=== PATIENT | male | born 1985 | race African-American/Black ===

== ENCOUNTER 2024-10-18 09:54 | Emergency (ER) | payer MEDICAID, SELFPAY ==
--- NOTE | ~2024-10-18 | XR_ITS ---
EXAMINATION: XR CHEST CLINICAL INFORMATION: cough COMPARISON: None available. TECHNIQUE: PA view of the chest was obtained. FINDINGS: The lungs are well expanded. No focal consolidation, effusion, edema, or pneumothorax. The cardiomediastinal silhouette is within normal limits for technique. No acute osseous abnormality. XR/XR chest 1V IMPRESSION: No acute pulmonary disease. Electronically signed by: Pat Vergara DO 10/18/2024 01:06 PM TONI
[2024-10-18 10:27] VITALS: BP 136/93; PULSE 81; RESP 20; TEMP 37; O2SAT 98; BMI 29.4
[2024-10-18 11:19] LABS: Influenza A PCR NEGATIVE (Negative); Influenza B PCR NEGATIVE (Negative); Resp Syncy Virus RNA Qual PCR NEGATIVE (Negative); SARS COV2 PCR INHOUSE NEGATIVE (Negative)
--- NOTE | 2024-10-18 11:41 | ED_ITS ---
HPI - General Adult General Chief complaint: Upper Respiratory Symptoms Stated complaint: Congestion, SOB Time Seen by Provider: 10/18/24 11:41 Source: patient Mode of arrival: ambulatory History of Present Illness ED Provider: esperanza NUNES narrative: Patient is a 39-year-old male with history of childhood asthma presenting to the emergency department with complaint of cough and shortness of breath since last . Reports fevers initially, none in the past few days. 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 Has not used any inhalers as he does not have any at home. Denies any chest pain or palpitations. MD complaint: cough, shortness of breath Onset (ago): day(s) Treatments prior to arrival: none Related Data Previous Rx's ?Medication ?Instructions ?Recorded albuterol sulfate 90 mcg/actuation 2 puff inhalation Q4-6H PRN 10/18/24 aerosol inhaler shortness of breath or wheezing #6.7 grams azithromycin 250 mg tablet See Rx Instructions PO .COMPLEX #6 10/18/24 tabs prednisone 20 mg tablet 40 mg (2 x 20 mg) PO DAILY #10 tabs 10/18/24 Allergies Allergy/AdvReac Type Severity Reaction Status Date / Time No Known Allergies Allergy Verified 10/18/24 10:30 Review of Systems Review of Systems: As per HPI Yes all other systems are reviewed and are negative Constitutional: Constitutional: Reports as per HPI [facility] Social History Social History Advance Directives: No Advance Directives Information Provided: Yes Physical Exam ED Vital Signs: Vital Signs - 24 hr 10/18/24 10:27 Temperature 98.6 F Pulse Rate 81 Respiratory Rate 20 Blood Pressure 136/93 H Pulse Oximetry 98 Oxygen Delivery Method Room Air BMI result Body Mass Index 29.4 Vital signs have been reviewed and appear to be correct. Blood pressure normal. Heart rate normal. Respiratory rate normal. Temperature normal. Oxygen saturation normal. Const General: cooperative, healthy appearing and no acute distress Orientation/consciousness: oriented to person, oriented to place, oriented to time and patient oriented x3 Limitations: no limitations HENMT Head: Yes normocephalic and Yes atraumatic Ears: external ears normal General nose exam: Normal external nose present Face and sinus: Yes face symmetric Mouth: oropharynx normal and moist mucous membranes Throat: Yes uvula midline Eyes Pupils: Equal, round and reactive pupils present Neck Neck: Yes normal visual inspection and Yes supple Resp Effort & Inspection: normal respiratory effort and able to speak in complete sentences Auscultation: clear to auscultation bilaterally and wheezes expiratory wheezes (bilateral upper) Cardio Rate: regular rate Rhythm: regular rhythm Heart sounds: S1 normal heart sound present and S2 normal heart sound present GI Palpation (GI): Soft to palpation and nontender Auscultation: normoactive bowel sounds General: Yes no CVA tenderness Back/Spine/Pelvis Back: no CVA tenderness Skin General skin exam: elasticity normal and turgor normal Neuro General: oriented to person, oriented to place, oriented to time, patient oriented x3, moves all extremities, no focal motor deficits and CN's II-XI intact bilaterally Cranial nerves: Yes Equal, round and reactive pupils present Cognition (Neuro): normal cognition Extrem General: Yes full ROM, Yes no pedal edema and Yes no calf tenderness Psych Mental Status: mental status grossly normal Affect: normal affect Thought process: Normal thought process present Medical Decision Making Medical Decision Making MDM Narrative: Patient is a 39-year-old male with history of childhood asthma presenting to the emergency department with complaint of cough and shortness of breath since last . On exam patient is awake, A+Ox3, VS WNL, afebrile, normal neurological exam without focal deficits, physical exam findings as above. Given reported symptoms and physical exam findings, initial differential includes viral illness, COVID, flu, RSV, bronchitis, pneumonia. Viral serology negative. X-ray chest notable for no evidence of pneumonia. My interpretation is in agreement with the radiologist's interpretation. Results discussed with patient all questions answered. Will treat for bronchitis with azithromycin, prednisone, albuterol. Follow up with PCP. Return precautions discussed. Patient verbalized understanding of and agreement with plan. Differential Diagnosis Differential Diagnoses: The differential diagnosis associated with the presentation includes As per [facility]. Lab Data [facility] Lab Attestation statement: I reviewed the patient's lab results. As per [facility]. Labs: Lab Results 10/18/24 Range/Units 10:38 Influenza Type A (PCR) NEGATIVE (Negative) Influenza Type B (PCR) NEGATIVE (Negative) RSV RNA Qual (PCR) NEGATIVE (Negative) SARS-CoV-2 RNA (RT-PCR) NEGATIVE (Negative) Independent Interpretation I performed an independent interpretation of an: Plain X-Ray Interpretation: no evidence of pneumonia on chest xray Radiology Impression Discussion of test interpretation with radiology: I have reviewed the radiologist's reading. Radiologist Impression: XR/XR chest 1V IMPRESSION: No acute pulmonary disease. External Record Review External record reviewed: Inpatient record, Office record and Outpatient record Prescription Management I considered prescription management with: Antibiotic and Other Discharge Plan Discharge Clinical Impression: Bronchitis Patient Disposition: Home, Self-Care Instructions: How to Use a Metered-Dose Inhaler (ED), Acute Bronchitis (ED), How Your Lungs Work (ED) Additional Instructions: You were evaluated in the emergency department today for cough and shortness of breath. You are being treated for bronchitis with an antibiotic, please complete the full course as prescribed. You are also being prescribed a short course of steroids to decrease inflammation. You are being prescribed an inhaler which you can use every 4-6 hours as needed for shortness of breath. Please follow-up with your primary care provider this week. Return to the emergency department if you develop worsening shortness of breath, difficulty breathing, chest pain, fever not improved with Tylenol or ibuprofen, or any other concerning symptoms. Prescriptions: New azithromycin 250 mg tablet See Rx Instructions .ROUTE .COMPLEX Qty: 6 0RF Rx Instructions: For 250 mg dose pack: take 500 mg today (day 1), then 250 mg for 4 days (days 2-5) prednisone 20 mg tablet 40 mg PO DAILY Qty: 10 0RF albuterol sulfate 90 mcg/actuation HFA aerosol inhaler 2 puff inhalation Q4-6H PRN (Reason: shortness of breath or wheezing) Qty: 6.7 0RF Stand Alone Forms: Work/School Release Print Language: Frisian
[2024-10-18 13:38] VITALS: BP 136/93; PULSE 81; RESP 20; TEMP 37; O2SAT 98
== END 2024-10-18 13:39 | disposition home or self-care (01) ==
PROVIDERS: Emergency Provider Emergency Medicine
DX: J40 Bronchitis, not specified as acute or chronic (principal); R05.9 Cough, unspecified; R06.02 Shortness of breath; Z03.818 Encounter for observation for suspected exposure to other biological agents ruled out
CPT/HCPCS: 0241U; 71045; 99282; 99283

== ENCOUNTER 2024-12-18 13:01 | Emergency (ER) | payer MEDICAID, SELFPAY ==
--- NOTE | ~2024-12-18 | XR_ITS ---
CLINICAL HISTORY: cough, SOB 2 view chest x-ray Comparison: CR/SR - XR CHEST 1V - 10/18/24 11:21 EST Findings: The lungs are clear. Normal size heart. No acute fracture. IMPRESSION: 1. No acute findings. This document has been electronically signed by: Ernestine Rogers MD on 12/18/2024 14:10:07
[2024-12-18 13:18] VITALS: BP 102/63; PULSE 104; RESP 18; TEMP 38; O2SAT 99
--- NOTE | 2024-12-18 13:19 | ED_ITS ---
HPI - URI/Sore Throat General Chief Complaint: Upper Respiratory Symptoms Stated Complaint: flu symptoms Time Seen by Provider: 12/18/24 14:38 Source: patient Mode of arrival: ambulatory Limitations: no limitations History of Present Illness ED Provider: Gerda Lomeli PA-C HPI Narrative: Patient is a 39 year old assigned male at with no reported medical history presenting to the emergency department today with fever, chills, cough, and body aches. Patient states that over the last 3 days he has felt generally unwell with a cough, fever, chills, and body aches. Patient denies any dizziness, lightheadedness, abdominal pain, nausea, vomiting, blurry vision, double vision, loss of vision, chest pain, difficulty breathing, shortness of breath, back pain, night sweats, pain with urination, increased urinary frequency, increased urinary urgency, blood in his urine or stool, syncope or a near syncopal episode, recent trauma or falls, bowel incontinence, bladder incontinence, or any other complaints at this time. MD elicited complaint: cough Associated symptoms: fever and chills Treatments prior to arrival: none Related Data Previous Rx's ?Medication ?Instructions ?Recorded albuterol sulfate 90 mcg/actuation 2 puff inhalation Q4-6H PRN 10/18/24 aerosol inhaler shortness of breath or wheezing #6.7 grams azithromycin 250 mg tablet See Rx Instructions PO .COMPLEX #6 10/18/24 tabs prednisone 20 mg tablet 40 mg (2 x 20 mg) PO DAILY #10 tabs 10/18/24 Allergies Allergy/AdvReac Type Severity Reaction Status Date / Time No Known Allergies Allergy Verified 12/18/24 13:24 Review of Systems Constitutional: Constitutional: Reports no additional constitutional complaints, Reports body ache(s), Reports chills, Reports fever(s) and Denies night sweats Eyes: Eyes: Reports no additional eye complaints, Denies blurry vision, Denies change in vision, Denies diplopia, Denies eye discharge, Denies loss of vision and Denies eye pain ENT: Denies dizziness Cardiovascular: Cardiovascular: Reports no additional cardiovascular complaints, Denies chest pain, Denies lightheadedness, Denies Loss of Consciousness and Denies dyspnea Respiratory: Respiratory: Reports no additional respiratory complaints, Reports cough and Denies dyspnea Gastrointestinal: Gastrointestinal: Reports no additional gastrointestinal complaints, Denies abdominal pain, Denies melena, Denies hematochezia, Denies change in bowel habits and Denies change in stool character Genitourinary: Genitourinary: Reports no additional male genitourinary complaints, Denies hematuria, Denies oliguria, Denies difficulty urinating, Denies dysuria, Denies urinary frequency, Denies urinary hesitancy, Denies urinary incontinence and Denies urinary urgency Musculoskeletal: Musculoskeletal: Reports no additional musculoskeletal complaints, Denies numbness and Denies tingling Neurologic: Denies dizziness, Denies loss of vision, Denies numbness and Denies tingling Psychiatric: Psychiatric: Reports no additional psychiatric complaints Endocrine: Endocrine: Reports no additional endocrine complaints Hematologic/Lymphatic: Hematologic/Lymphatic: Reports no additional hematologic/lymphatic complaints Allergic/Immunologic: Allergic/Immunologic: Reports no additional allergic/immunologic complaints PMFSH Past Medical History Attestation statement: The following information was validated with the patient. Source: old records reviewed and nursing notes reviewed Social History Social History Advance Directives: No Advance Directives Information Provided: Yes Physical Exam Vital Signs: Vital Signs: Last Vital Signs Temp 100.4 F 12/18/24 13:18 Pulse 104 H 12/18/24 13:18 Resp 18 12/18/24 13:18 BP 102/63 12/18/24 13:18 Pulse Ox 99 12/18/24 13:18 O2 Del Method Room Air 12/18/24 13:18 BMI result Body Mass Index 30.0 Const: General: cooperative, no acute distress, alert and awake Nutritional Appearance: well nourished Orientation/consciousness: patient oriented x3 Limitations: no limitations HEENT: Head: Yes normal to inspection and Yes atraumatic Ears: hearing grossly normal bilaterally and external ears normal General nose exam: Normal external nose present, no nasal discharge noted and no epistaxis Face and sinus: Yes normal facial exam, No abrasion and No laceration Mouth: Normal oral and palatal mucosa present, no drooling and no muffled voice Eyes: General: appearance normal, both eyes and all related structures Periorbital: periorbital findings normal Eyelids: Yes eyelids normal Conjunctivae: conjunctivae normal Pupils: Equal, round and reactive pupils present EOM: EOMs intact bilaterally Neck: Neck: Yes normal visual inspection, Yes full ROM and Yes no lymphadenopathy Chest: Chest palpation & inspection: normal inspection of the chest Resp: Effort & Inspection: normal respiratory effort and able to speak in complete sentences GI: Inspection: Yes normal to inspection Neuro: General: patient oriented x3, moves all extremities and CN's II-XI intact bilaterally Cranial nerves: Yes Equal, round and reactive pupils present Cognition (Neuro): normal cognition Extrem: General: Yes normal to inspection, Yes full ROM and Yes capillary refill normal Psych: Appearance: grossly normal Mental Status: mental status grossly normal Affect: normal affect Attitude: cooperative Thought process: Normal thought process present Thought content: Normal thought content present Insight: Good insight present (Psych) Course Course Course Narrative: This is an RME performed by Charissa Berman CNP: Additional HPI, ROS, PE not included below will be deferred to primary provider. Patient is a 31-year-old male presents emergency department for evaluation of 3 days of symptoms including fevers, chills, body aches, shortness of breath, cough, dizziness. Reports multiple sick contacts 1 week prior with similar symptoms. Plan: CXR, viral serologies Medications Administered Discontinued Medications Generic Name Dose Route Start Last Admin Trade Name Freq PRN Reason Stop Dose Admin Ibuprofen 600 mg 12/18/24 13:22 12/18/24 13:25 Ibuprofen 600 Mg Tablet PO 12/18/24 13:23 600 mg ONCE ONE Administration Medical Decision Making Medical Decision Making [facility] Narrative: Call to establish and follow up with a primary care provider. If you already have a primary care provider, please follow up with them. Patient's physical exam was unremarkable. Patient's influenza test was positive. Patient's chest x- ray showed no acute process. I explained my physical exam findings as well as all test results to the patient. I answered all questions asked by the patient. I stressed the importance of the patient taking his medication as directed (either prescribed or as the over the counter packaging recommends). I stressed the importance of the patient following up with his primary care provider. I stressed the importance of the patient returning to the emergency department immediately if his symptoms were to worsen or if he were to develop any dizziness, shortness of breath, difficulty breathing, chest pain, blurry vision, loss of vision, nausea, vomiting, abdominal pain, fever, chills, back pain, or any other complaints. Patient verbalized agreement and understanding with this treatment plan and discharge. Differential Diagnosis Differential Diagnoses: The differential diagnosis associated with the presentation includes COVID-19 Influenza RSV URI Admission/Observation Consideration of admission/observation: Escalation of care including admission/observation considered Patient would have been admitted to the hospital had his work up had any findings where hospital admission was appropriate and his clinical presentation warranted hospital admission. Lab Data [facility] Lab Attestation statement: I reviewed the patient's lab results. My interpretation of these results are in the [facility] Rationale portion of this note. Labs: Lab Results 12/18/24 Range/Units 13:38 Influenza Type A (PCR) POSITIVE A (Negative) Influenza Type B (PCR) NEGATIVE (Negative) RSV RNA Qual (PCR) NEGATIVE (Negative) SARS-CoV-2 RNA (RT-PCR) NEGATIVE (Negative) Independent Interpretation I performed an independent interpretation of an: Plain X-Ray Interpretation: My interpretation is in agreement with the radiologist's impression of this imaging study. CLINICAL HISTORY: cough, SOB 2 view chest x-ray Comparison: CR/SR - XR CHEST 1V - 10/18/24 11:21 EST Findings: The lungs are clear. Normal size heart. No acute fracture. IMPRESSION: 1. No acute findings. This document has been electronically signed by: Ernestine Rogers MD on 12/18/2024 14:10:07 Dictated By: Ernestine Rogers MD Signed By: Electronically signed by Ernestine Rogers MD 12/18/24 1410 Radiology Impression Discussion of test interpretation with radiology: I have reviewed the radiologist's reading. Discharge Plan Discharge Clinical Impression: Influenza Patient Disposition: Home, Self-Care Instructions: Influenza (DC) Additional Instructions: Follow up with your primary care provider. Return to the emergency department immediately if your symptoms worsen or if you develop any dizziness, shortness of breath, difficulty breathing, chest pain, blurry vision, loss of vision, nausea, vomiting, abdominal pain, fever, chills, back pain, or any other complaints. Prescriptions: No Action azithromycin 250 mg tablet See Rx Instructions .ROUTE .COMPLEX Qty: 6 0RF Rx Instructions: For 250 mg dose pack: take 500 mg today (day 1), then 250 mg for 4 days (days 2-5) prednisone 20 mg tablet 40 mg PO DAILY Qty: 10 0RF albuterol sulfate 90 mcg/actuation HFA aerosol inhaler 2 puff inhalation Q4-6H PRN (Reason: shortness of breath or wheezing) Qty: 6.7 0RF Referrals: [facility] Family Medicine [Provider Group] (Call to establish and follow up with a primary care provider. If you already have a primary care provider, please follow up with them.) [facility] Primary Care, Caitlyn [Provider Group] (Call to establish and follow up with a primary care provider. If you already have a primary care provider, please follow up with them.) [facility] Primary Care,Luis [Provider Group] (Call to establish and follow up with a primary care provider. If you already have a primary care provider, please follow up with them.) [facility] [place] Primary CareAntonio [Provider Group] (Call to establish and follow up with a primary care provider. If you already have a primary care provider, please follow up with them.) Stand Alone Forms: Work/School Release Print Language: Swiss
[2024-12-18] MEDS: Ibuprofen 600 MG TABLET PO (13:25)
[2024-12-18 14:21] LABS: Influenza A PCR POSITIVE (Negative); Influenza B PCR NEGATIVE (Negative); Resp Syncy Virus RNA Qual PCR NEGATIVE (Negative); SARS COV2 PCR INHOUSE NEGATIVE (Negative)
[2024-12-18 15:42] VITALS: BP 102/63; PULSE 104; RESP 18; TEMP 38; O2SAT 99
== END 2024-12-18 15:46 | disposition home or self-care (01) ==
PROVIDERS: Nurse Practitioner Family; Emergency Provider Emergency Medicine
DX: J10.1 Influenza due to other identified influenza virus with other respiratory manifestations (principal); R50.9 Fever, unspecified; M79.10 Myalgia, unspecified site; R05.9 Cough, unspecified; Z03.818 Encounter for observation for suspected exposure to other biological agents ruled out
CPT/HCPCS: 0241U; 71046; 99283

== ENCOUNTER → 2024-12-18 13:22 | Outpatient (BNV) | payer MEDICAID, SELFPAY | PROVIDERS: Emergency Provider Emergency Medicine; Visit Provider Radiology Diagnostic Radiology | DX: R06.02 Shortness of breath (principal); R05.9 Cough, unspecified | CPT/HCPCS: 71046 ==

== ENCOUNTER 2025-03-14 09:17 | Emergency (ER) | payer MEDICAID, SELFPAY ==
--- NOTE | ~2025-03-14 | XR_ITS ---
EXAMINATION: XR CHEST CLINICAL INFORMATION: asthma flare COMPARISON: 12/18/2024, 10/18/2024. TECHNIQUE: 2 views of the chest were obtained. FINDINGS: The cardiac, hilar, and mediastinal contours are normal. The lungs are clear bilaterally. There is no pneumothorax or pleural effusion. There is no focal osseous or soft tissue abnormality. XR/XR chest 2V IMPRESSION: No active pulmonary disease. Electronically signed by: Juanjo Curtis MD 03/14/2025 10:52 AM EDT
[2025-03-14 09:47] VITALS: BP 121/73; PULSE 80; RESP 18; TEMP 37.1; O2SAT 100; BMI 29.3
--- NOTE | 2025-03-14 11:59 | ED_ITS ---
HPI - Asthma General Chief Complaint: Asthma Stated Complaint: Asthma Time Seen by Provider: 03/14/25 11:58 Source: patient Mode of arrival: ambulatory Limitations: no limitations History of Present Illness ED Provider: FLORES CAMPO PA-C HPI Narrative: 39-year-old male with past medical history significant for asthma presents to the ED today for evaluation of asthma symptoms . 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 He states this has been exacerbating his asthma. He becomes wheezy and short of breath while exerting himself. He has an albuterol inhaler when he has been using more often without improvement. Denies known sick contacts. Denies any associated upper respiratory symptoms. Denies fever, chills, sore throat, chest pain, palpitations. No recent travel or long car rides. He states he has been trying to establish care with a primary care provider over the past 3 months without luck. Related Data Previous Rx's ?Medication ?Instructions ?Recorded albuterol sulfate 90 mcg/actuation 2 puff inhalation Q4-6H PRN 10/18/24 aerosol inhaler shortness of breath or wheezing #6.7 grams azithromycin 250 mg tablet See Rx Instructions PO .COMPLEX #6 10/18/24 tabs prednisone 20 mg tablet 40 mg (2 x 20 mg) PO DAILY #10 tabs 10/18/24 prednisone 20 mg tablet 40 mg (2 x 20 mg) PO DAILY 4 days 03/14/25 #8 tabs Allergies Allergy/AdvReac Type Severity Reaction Status Date / Time No Known Allergies Allergy Verified 03/14/25 09:53 Review of Systems Review of Systems: Yes all other systems are reviewed and are negative PMFSH Past Medical History Attestation statement: The following information was validated with the patient. Source: old records reviewed and nursing notes reviewed Social History Social History Advance Directives: No Advance Directives Information Provided: Yes Physical Exam Vital Signs: Vital Signs: Last Vital Signs Temp 98.7 F 03/14/25 12:35 Pulse 80 03/14/25 12:35 Resp 18 03/14/25 12:35 BP 121/73 03/14/25 12:35 Pulse Ox 100 03/14/25 12:35 O2 Del Method Room Air 03/14/25 12:35 BMI result Body Mass Index 29.3 Vital signs stable. Not tachycardic or hypoxic. Afebrile. General: Well appearing, in no acute distress. Skin: Warm, dry, intact. No rashes or lesions. Head: Normocephalic, atraumatic. EENT: Hearing is intact b/l. Conjunctiva clear. PERRLA. EOM intact. Moist mucous membranes.? Neck: Supple without LAD Cardiac: Chest wall symmetric. RRR Lungs: Normal respiratory effort without accessory muscle use. No tripoding. CTA bilaterally Ext: Upper and lower extremities atraumatic, without tenderness, deformity, swelling or erythema. no pitting edema. Neuro: AOx3. Normal speech. Ambulating with steady gait. Psych: Appropriate mood and affect. Responds appropriately to questions. Course Course Course Narrative: cxr without infiltrate or consolidation to suggest pneumonia. patient is asymptomatic at present - reports symptoms only with working outside. I do not suspect cardiac etiology - blood work/ekg not warranted. symptoms appear to be situational/ related to outdoor activity/ asthma. he is requesting a note for work. i will start patient on 5 day course of prednisone. he does not require breathing treatment at this time. satting 100% on RA. Patient has remained stable throughout ED visit today. Discussed worrisome signs and symptoms and when to return to the ED. All questions answered at this time. Patient is agreeable with disposition and stable for discharge. Medications Administered Discontinued Medications Generic Name Dose Route Start Last Admin Trade Name Freq PRN Reason Stop Dose Admin Prednisone 40 mg 03/14/25 12:00 03/14/25 12:06 Prednisone 20 Mg Tablet PO 03/14/25 12:01 40 mg ONCE ONE Administration Medical Decision Making Medical Decision Making [facility] Narrative: 39-year-old male with past medical history significant for asthma presents to the ED today for evaluation of asthma symptoms . Vital signs stable. Afebrile. Not hypoxic or tachycardic. He is well-appearing and in no acute distress. Normal respiratory effort. No tripoding. Lungs are CTA bilaterally without adventitious breath sounds. No pitting edema. Differential diagnosis includes asthma exacerbation, pneumonia, bronchitis. Unlikely viral syndrome, strep throat, ACS, CHF. Plan for chest x-ray, re-evaluation. Differential Diagnosis Differential Diagnoses: The differential diagnosis associated with the presentation includes as above. Admission/Observation not indicated. Independent Interpretation I performed an independent interpretation of an: Plain X-Ray Interpretation: Chest x-ray without infiltrate or consolidation Radiology Impression Discussion of test interpretation with radiology: I have reviewed the radiologist's reading. Radiologist Impression: Procedure(s): XR chest 2V Accession Number(s): [id number] cc: Generic ED Physician; Physician,Unknown ~ EXAMINATION: XR CHEST CLINICAL INFORMATION: asthma flare COMPARISON: 12/18/2024, 10/18/2024. TECHNIQUE: 2 views of the chest were obtained. FINDINGS: The cardiac, hilar, and mediastinal contours are normal. The lungs are clear bilaterally. There is no pneumothorax or pleural effusion. There is no focal osseous or soft tissue abnormality. XR/XR chest 2V IMPRESSION: No active pulmonary disease. Electronically signed by: Juanjo Curtis MD 03/14/2025 10:52 AM EDT RP Prescription Management I considered prescription management with: Other (Prednisone) Chronic Conditions Patient?s care impacted by: Other (asthma) Social Determinants Patient?s care significantly limited by Social Determinants of Health including: Other Social Determinant of Health Critical Care Time Critical Care Time Critical Care Time: No Discharge Plan Discharge Clinical Impression: Asthma Patient Disposition: Home, Self-Care Instructions: Asthma (ED) Additional Instructions: You were evaluated in the ED today due to symptoms related to your asthma. Your chest x-ray does not demonstrate pneumonia. You were vitals are stable and lungs are clear. I am sending a 4 day course of steroids to your pharmacy. Start this tomorrow as you already received the 1st dose in the ED today. I have provided you with a note for work. Please make sure you establish care with a primary care provider for further management of your asthma. I have also provided you with a referral to a [facility] [employer]. Return with any new or worsening symptoms. In the case of an emergency call 911. Prescriptions: New prednisone 20 mg tablet 40 mg PO DAILY 4 Days Qty: 8 0RF No Action azithromycin 250 mg tablet See Rx Instructions .ROUTE .COMPLEX Qty: 6 0RF Rx Instructions: For 250 mg dose pack: take 500 mg today (day 1), then 250 mg for 4 days (days 2-5) prednisone 20 mg tablet 40 mg PO DAILY Qty: 10 0RF albuterol sulfate 90 mcg/actuation HFA aerosol inhaler 2 puff inhalation Q4-6H PRN (Reason: shortness of breath or wheezing) Qty: 6.7 0RF Referrals: [facility] [place] [Provider Group] [facility] [place] [facility], Caitlyn [Provider Group] [facility] [place] Primary Care, Luis [Provider Group] [facility] [place] [facility] [Provider Group] Stand Alone Forms: Work/School Release Interventions: ED Discharge Assessment Last Done: 03/14/25 12:35 Discharge Date/Time: 03/14/25 12:37 Print Language: Moroccan
[2025-03-14] MEDS: predniSONE 20 MG TABLET 40 MG PO (12:06)
[2025-03-14 12:35] VITALS: BP 121/73; PULSE 80; RESP 18; TEMP 37.1; O2SAT 100
--- OUTSIDE RECORDS SUMMARY | 2025-03-14 13:33 | XMS_ITS | Clinical Summary ---
Author Organization [facility] Address [address] [place] [address] Care Team Providers Care Edge Bonder Name Role Phone Tone Quezada MD Primary Care Provider [phone] Source Comments PLEASE NOTE, if this patient is a minor, it may be UNLAWFUL to discuss sensitive information that is contained in these records (such as FAMILY PLANNING, MENTAL HEALTH or SUBSTANCE ABUSE) with the minor patient's parent or other person without the patient's specific authorization.[facility] Allergies No known active allergies Medications ibuprofen 800 mg tablet Take 800 mg by mouth every 8 (eight) hours as needed for pain 07/10/2022 Active Active Problems No known active problems Immunizations Immunization Administration Dates Next Due TDAP 07/29/2022 Social History Tobacco Use Types Packs/Day Years Used Date Smoking Tobacco: Every Day Cigarettes Passive Smoke Exposure: Current Smokeless Tobacco: Current Tobacco Cessation:Ready to Q uit: No; Counseling Given: Yes Comments:2 cigg per day Alcohol Use Standard Drinks/Week Comments Not Currently 0 (1 standard drink = 0.6 oz pur e alcohol) Social Connections Answer Date Recorded Connectedness 0 07/21/2024 Financial Resource Strain Answer Date R ecorded Financial Resource Strain 0 2021 Stress Answer Date Recorded Stress 0 02/12/2022 Physical Activity Answer Date Recorded Physical Activity 0 02/12/2022 Food Insecurity Answer Date Recorded Food 0 08/04/2024 Transportation Needs Answer Date Record ed Transportation 0 02/12/2022 Housing Stability Answer Date Recorded Housing 0 02/12/2022 Safety and Environment Answer Date Arnoldo rded Safety 0 02/12/2022 Utilities Answer Date Recorded Utilities 0 02/12/2022 Employment Answer Date Recorded Stress 0 07/21/2024 Sex and Gender Information Value Date Recorded Sex Assigned at Male 07/22/2022 10:55 AM PDT Legal Sex Male 10:11 AM PST Gender Identity Male 07/22/2022 10:55 AM PDT Sexual Orientation Straight 07/22/2022 10 :55 AM PDT Plan of Treatment Health Maintenance Due Date Last Done Comments Anxiety Screening 1986 Diabetes Screening 1986 Hepatitis C Screening 1986 Tobacco Screening 1986 HIV Screening 2001 Hypertension Screening (#1) 2004 Imm-Hepatitis B (1 of 3 - 19+ 3-dose series) Imm-Pneumococcal (1 of 2 - PCV) 2005 Annual Preventive Care Visit 07/22/2023 07/22/2022 Tobacco Cessation Counseling (#1) 07/22/2023 [id number] ( - season) 2024 Imm-Influenza (#1) 2024 Alcohol and Drug Screen 11/09/2024 07/22/2022 Depression Annual Screen 11/09/2024 07/22/2022 Imm-DTaP/Tdap/Td (2 - Td or Tdap) 07/29/2032 022 Insurance [facility] Care Teams Edge Bonder Relationship Specialty Start Date End Date Tone Quezada MD [address] [place] [id number] PCP - General Family Medicine, Physician 04/05/24
== END 2025-03-14 12:37 | disposition home or self-care (01) ==
PROVIDERS: Emergency Provider Emergency Medicine Emergency Medical Services
DX: J45.909 Unspecified asthma, uncomplicated (principal)
CPT/HCPCS: 71046; 99282; 99283

== ENCOUNTER → 2025-03-14 10:10 | Outpatient (BNV) | payer MEDICAID, SELFPAY | PROVIDERS: Visit Provider Radiology Diagnostic Radiology | DX: J45.909 Unspecified asthma, uncomplicated (principal) | CPT/HCPCS: 71046 ==

== ENCOUNTER 2025-07-15 12:11 | Emergency (ER) | payer MEDICAID, SELFPAY ==
[2025-07-15 12:26] VITALS: BP 111/61; PULSE 78; RESP 18; TEMP 36.8; O2SAT 97; BMI 29.4
--- NOTE | 2025-07-15 12:26 | ED_ITS ---
HPI - General Adult General Chief complaint: Upper Respiratory Symptoms Stated complaint: throat hurts Time Seen by Provider: 07/15/25 12:31 Source: patient Mode of arrival: ambulatory Limitations: no limitations History of Present Illness ED Provider: Gerda Lomeli PA-C HPI narrative: Patient is a 39 year old assigned male at with no significant medical history presenting to the emergency department today with sore throat, sinus pressure, cough and feeling generally unwell. Patient reports right-sided sinus pressure and pain radiating from his face to his ear prompting him to visit the ER. Patient states that the symptoms started on Thursday07/10/2025. Patient reports taking Motrin which helped. Patient reports diarrhea that lasted 2 days and has since resolved. Patient denies any dizziness, lightheadedness, abdominal pain, nausea, vomiting, chills, blurry vision, double vision, loss of vision, chest pain, difficulty breathing, shortness of breath, back pain, night sweats, urinary symptoms or any other complaints at this time. Onset (ago): day(s) (5 days) Related Data Previous Rx's ?Medication ?Instructions ?Recorded albuterol sulfate 90 mcg/actuation 2 puff inhalation Q 4-6H PRN 10/18/24 aerosol inhaler shortness of breath or wheez ing #6.7 grams azithromycin 250 mg tablet See Rx Instructions PO .COM PLEX #6 10/18/24 tabs prednisone 20 mg tablet 40 mg (2 x 20 mg) PO DAILY # 10 tabs 10/18/24 prednisone 20 mg tablet 40 mg (2 x 20 mg) PO DAILY 4 days 03/14/25 #8 tabs doxycycline hyclate 100 mg tablet 100 mg PO BID 7 days #14 tabs 07/15/25 Allergies Allergy/AdvReac Type Severity Reaction Status Date / Time No Known Allergies Allergy Verified 07/15/25 12:27 Review of Systems Constitutional: Constitutional: Reports as per HPI Eyes: Eyes: Reports as per HPI ENT: Reports as per HPI Cardiovascular: Cardiovascular: Reports as per HPI Respiratory: Respiratory: Reports as per HPI Gastrointestinal: Gastrointestinal: Reports as per HPI Genitourinary: Genitourinary: Reports as per HPI Musculoskeletal: Musculoskeletal: Reports as per HPI Integumentary/Breasts: Skin/Breast: Reports as per HPI Neurologic: Reports as per HPI Psychiatric: Psychiatric: Reports as per HPI Endocrine: Endocrine: Reports as per HPI Hematologic/Lymphatic: Hematologic/Lymphatic: Reports as per HPI Allergic/Immunologic: Allergic/Immunologic: Reports as per HPI [facility] Past Medical History Attestation statement: The following information was validated with the patient. Source: old records reviewed and nursing notes reviewed Social History Social History Advance Directives: No Advance Directives Information Provided: Yes Physical Exam ED Vital Signs: Vital Signs - 24 hr 07/15/25 12:26 07/15/25 13:22 Temperature 98.2 F 98.2 F Pulse Rate 78 78 Respiratory Rate 18 18 Blood Pressure 111/61 111/61 Pulse Oximetry 97 97 Oxygen Delivery Method Room Air Room Air BMI result Body Mass Index 29.4 Const General: cooperative, no acute distress, alert and awake Nutritional Appearance: well nourished Orientation/consciousness: patient oriented x3 HENMT Head: Yes normal to inspection and Yes atraumatic Ears: hearing grossly normal bilaterally and external ears normal General nose exam: Normal external nose present, no nasal discharge noted and no epistaxis Face and sinus: Yes normal facial exam, No abrasion and No laceration Mouth: Normal oral and palatal mucosa present, no drooling and no muffled voice Eyes General: appearance normal, both eyes and all related structures Periorbital: periorbital findings normal Eyelids: Yes eyelids normal Conjunctivae: conjunctivae normal Pupils: Equal, round and reactive pupils present EOM: EOMs intact bilaterally Neck Neck: Yes normal visual inspection and Yes full ROM Resp Effort & Inspection: normal respiratory effort and able to speak in complete sentences Auscultation: wheezes throughout Cardio Rate: regular rate Rhythm: regular rhythm Neuro General: patient oriented x3, moves all extremities and CN's II-XI intact bilaterally Cranial nerves: Yes Equal, round and reactive pupils present Cognition (Neuro): normal cognition Extrem General: Yes normal to inspection, Yes full ROM and Yes capillary refill normal Psych Appearance: grossly normal Mental Status: mental status grossly normal Affect: normal affect Attitude: cooperative Thought process: Normal thought process present Thought content: Normal thought content present Insight: Good insight present (Psych) Course Course Course Narrative: This is a Rapid Medical Examination (RME) performed by Angie Mercer PA-C in triage. Full HPI, ROS, assessment and treatment plan per primary provider in the Main ED. Hx: 39 yo M here for nasal congestion, right facial pain, cough, and sore throat x3 days. child and girl friend are ill at home as well. Plan: viral/strep swabs Medical Decision Making Medical Decision Making [facility] Narrative: Patient is a 39 year old assigned male at with no significant medical history presenting to the emergency department today with sore throat, sinus pressure, cough and feeling generally unwell. Patient's physical exam was unremarkable. Patient's COVID-19, influenza, and strep testing were negative. Patient's clinical presentation is most consistent with sinusitis. Given the patient's length of symptoms, will treat with PO ABX. I explained my physical exam findings as well as all test results to the patient. I answered all questions asked by the patient. I stressed the importance of the patient taking his medication as directed (either prescribed or as the over the counter packaging recommends). I stressed the importance of the patient following up with his primary care provider. I stressed the importance of the patient returning to the emergency department immediately if his symptoms were to worsen or if he were to develop any dizziness, shortness of breath, difficulty breathing, chest pain, blurry vision, loss of vision, nausea, vomiting, abdominal pain, fever, chills, back pain, or any other complaints. Patient verbalized agreement and understanding with this treatment plan and discharge. Differential Diagnosis Differential Diagnoses: The differential diagnosis associated with the presentation includes Sinusitis COVID-19 Influenza Strep pharyngitis Viral illness Admission/Observation Consideration of admission/observation: Escalation of care including admission/observation considered Patient would have been admitted to the hospital had his work up had any findings where hospital admission was appropriate and his clinical presentation warranted hospital admission. Lab Data [facility] Lab Attestation statement: I reviewed the patient's lab results. My interpretation of these results are in the [facility] Rationale portion of this note. Labs: Lab Results 07/15/25 Range/Units 12:30 COVID-19 (GAGE) Negative (Negative) COVID-19 Clin Com See Note Influenza Type A (SALLY) Negative (Negative) Influenza Type B (SALLY) Negative (Negative) Influenza A & B Note See Note S. pyogenes GrpA SALLY Negative (Negative) Prescription Management I considered prescription management with: Antibiotic (patient prescribed an antibiotic for sinusitis) Discharge Plan Discharge Clinical Impression: Sinusitis Patient Disposition: Home, Self-Care Instructions: Sinusitis (ED) Additional Instructions: Avoid direct sunlight while you are on this antibiotic. IF you are prescribed home medications and/or you are taking over the counter medications at home - it is very important you continue to do so as prescribed / directed unless told otherwise. Follow up with your primary care provider. Return to the emergency department immediately if your symptoms worsen or if you develop any numbness, tingling, dizziness, shortness of breath, difficulty breathing, chest pain, blurry vision, loss of vision, nausea, vomiting, abdominal pain, fever, chills, back pain, or any other complaints. Please see the information below about our Patient Portal. If you are not yet enrolled in the [facility] Patient Portal, you will receive an enrollment email invitation following your visit to any [facility] care setting. You may also self-enroll in the Patient Portal by visiting our website: [email or web address] The following information is required to access the Patient Portal: - Your [facility] [place] Number - Your personal home email address (must match what is in your electronic medical record, Registration staff can assist with this) - Name - Date of Capabilities of the Patient Portal: - Message some providers - View upcoming appointments - Access your health summary, medical history, and visit history - View current conditions and allergies - View procedure and lab results - View your medications, including guidelines, side effects, and precautions - Complete pre-appointment questionnaires requested by your provider - Ready summary reports of your office visits and procedures To access the Patient Portal Mobile Ricki, follow these directions: - Search [employer] in the Ricki Store or [employer] Store - Download the Ricki - Search for [facility] - Enter your login/password Prescriptions: New doxycycline hyclate 100 mg tablet 100 mg PO BID 7 Days Qty: 14 0RF No Action azithromycin 250 mg tablet See Rx Instructions .ROUTE .COMPLEX Qty: 6 0RF Rx Instructions: For 250 mg dose pack: take 500 mg today (day 1), then 250 mg for 4 days (days 2-5) prednisone 20 mg tablet 40 mg PO DAILY Qty: 10 0RF albuterol sulfate 90 mcg/actuation HFA aerosol inhaler 2 puff inhalation Q4-6H PRN (Reason: shortness of breath or wheezing) Qty: 6.7 0RF prednisone 20 mg tablet 40 mg PO DAILY 4 Days Qty: 8 0RF Referrals: [facility] [Primary Care Provider, Primary Care] Stand Alone Forms: Work/School Release Interventions: ED Discharge Assessment Last Done: 07/15/25 13:22 Discharge Date/Time: 07/15/25 13:23 Print Language: Danish
[2025-07-15 12:49] LABS: IDNOW Serial# 55D5AD1C; Strep A Nucleic Acid Negative (Negative)
[2025-07-15 12:54] LABS: COVID-19 Test Negative (Negative); IDNOW Serial# 58CA691E
[2025-07-15 13:03] LABS: IDNOW Serial# 08D9AD1C; Influenza B2 Negative (Negative)
[2025-07-15 13:22] VITALS: BP 111/61; PULSE 78; RESP 18; TEMP 36.8; O2SAT 97
== END 2025-07-15 13:23 | disposition home or self-care (01) ==
PROVIDERS: Physician Assistant Medical; Emergency Provider Emergency Medicine; PCP Dentist General Practice
DX: J32.9 Chronic sinusitis, unspecified (principal); Z03.818 Encounter for observation for suspected exposure to other biological agents ruled out; Z11.52 Encounter for screening for COVID-19
CPT/HCPCS: 87502; 87635; 87651; 99282; 99283